=== PATIENT | female | born 2000 | race Caucasian/White ===

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

== ENCOUNTER → 2023-07-18 11:25 | Outpatient (CLI) | payer OTHER, SELFPAY ==
--- NOTE | 2023-07-18 11:29 | CA_ITS ---
APPROVED REPORT EXAM: Comprehensive 2D, Doppler, and color-flow Echocardiogram Supply Aide: Sirena Coyle, LORENZO, RVS Ht: 5 ft 6 in Wt: 208lbs BSA: 2.03 BP: 122/64 mmHg Indications: palpitations, murmur, edema 2D Dimensions Aortic Root 2.53 cm LA Volume 40.20 mL Left Atrium 3.07 cm LA Volume Index [id number] mL/m2 (M/F) 16-34 LVOT 1.87 cm (M/F) 1.5-2.5 M-Mode Dimensions RVDd 1.37 cm (0.9-2.6) LA Diam 3.82 cm (1.9-4.0) LVDd 4.75 cm (3.5-5.7) Ao Diam 2.62 cm (2.0-3.7) LVDs 3.44 cm (3.5-5.7) IVSd 0.91 cm (0.6-1.1) PWd 0.77 cm (0.6-1.1) EF (Teich) 53.50% EPSs 0.17 cm FS 27.60% EDV (Teich) 104.90 mL TAPSE 2.52 (<1.7) ESV (Teich) 48.80 mL LV Diastology E Decel Time 170.00 (160-240 msec) E/A Ratio 3.35 MED E' 14.00 (< 7 cm/sec) MED A' 8.90 cm/s E'/MED E' Ratio 8.57 (>14) LAT E' 17.00 (<10 cm/sec) LAT A' 7.80 cm/s E/LAT E' Ratio 7.06 (>14) Aortic Valve LVOT Max 97.00 (70-110 cm/s) LVOT VTI 21.65 cm AoV Peak Bret. 113.00 (50-130 cm/s) AO Peak GR. 5.10 mmHg AO Mean GR. 2.60 (<5 mmHg) AO VTI 23.96 (18-25 cm) DANN (VTI) 2.48 (2.5-4.5 cm2) Mitral Valve MV A Velocity 36.00 (40-130 cm/s) E/A Ratio 3.35 MV Decel. Time 170.00 (160-240 ms) Pulmonary Valve PV Peak Velocity 61.00 (50-150 cm/s) Tricuspid Valve TR P. Velocity 235.00 cm/s RAP Estimate 10.00 mmHg RVSP 32.00 mmHg Left Ventricle The left ventricle is normal size. The left ventricular systolic function is normal. The left ventricular ejection fraction is within the normal range. There is normal left ventricular wall thickness. There is normal LV segmental wall motion. The left ventricular diastolic function is normal. LVEF is 60%. Right Ventricle The right ventricle is normal size. The right ventricular systolic function is normal. Atria The left atrium size is normal. The right atrium size is normal. There is no Doppler evidence of interatrial shunt. Aortic Valve The aortic valve is normal in structure. The aortic valve is trileaflet. There is no aortic valvular stenosis. No aortic regurgitation is present. Mitral Valve The mitral valve is normal in structure. No evidence of mitral valve stenosis. There is no mitral valve regurgitation noted. Tricuspid Valve The tricuspid valve leaflets are thin and pliable. Mild tricuspid regurgitation. RVSP is 20-25 mmHg. Pulmonic Valve The pulmonary valve is normal in structure. Mild pulmonic regurgitation. Great Vessels The aortic root is normal in size. The ascending aorta is normal in size. IVC is normal in size and collapses >50% with inspiration. Pericardium There is no pericardial effusion. Other Information Study Quality: Adequate Conclusion Normal biventricular systolic function. No significant valvular stenosis or regurgitation. Electronically signed by : Nayely De Oliveira MD 07/18/2023 21:46:49
== END ==
PROVIDERS: PCP Nurse Practitioner Family; Visit Provider Nurse Practitioner Family
DX: R42 Dizziness and giddiness (principal); R00.2 Palpitations; R60.9 Edema, unspecified
CPT/HCPCS: 93270; 93306

== ENCOUNTER 2024-01-01 09:21 | Outpatient (CLI) | payer OTHER, SELFPAY ==
[2024-01-01 10:03] LABS: Albumin Level 4.1 g/dl (3.5-5.0); Alkaline Phosphatase 41 U/L (38-126); Anion Gap 7.3 mEq/L (5-15); Bilirubin,Direct 0.1 mg/dl (0.0-0.4); Bilirubin,Indirect 0.2 mg/dL (0.0-0.9); Bilirubin,Total 0.3 mg/dl (0.2-1.3); Bilirubin,Unconjugated 0.2 mg/dL (0.0-1.1); Blood Urea Nitrogen 13 mg/dl (7-17); Carbon Dioxide 29 mmol/L (22.0-30.0); Chloride 107 mmol/L (98-107); Estimated Glomerular Filt Rate 78 ml/min (>60); GFR (African American) 94 ML/MIN (>60); Potassium 4.3 mmoL/L (3.5-5.1); Sodium 139 mmol/L (136-145); Total Protein,Serum 6.6 g/dl (6.3-8.2)
[2024-01-01 10:08] LABS: Glucose 96 mg/dl (74-100)
[2024-01-01 10:09] LABS: Calcium 9.4 mg/dl (8.4-10.2)
[2024-01-01 10:12] LABS: Basophils # 0.1 K/mm3 (0-0.2); Basophils % 0.9 % (0.1-2.0); Eosinophils # 0.6 K/mm3 (0.0-0.4); Eosinophils % 7.3 % (0.1-12.0); Hematocrit 41.6 % (37.0-47.0); Hemoglobin 14.4 g/dL (12.2-16.2); Lymphocytes % 25.4 % (10-50); Mean Corpuscular HGB Conc 34.5 g/dL (31.8-35.4); Mean Corpuscular Hemoglobin 31.2 pg (27.0-31.2); Mean Corpuscular Volume 90.4 fl (81-99); Mean Platelet Volume 8.1 fl (7.4-10.4); Monocytes # 0.5 K/mm3 (0.1-1.0); Monocytes % 5.8 % (1.7-9.3); Neutrophils # 4.7 K/mm3 (1.8-7.8); Neutrophils % 60.6 % (37.0-80.0); Platelet Count 413 K/mm3 (142-424); Red Cell Distribution Width 13.6 % (11.5-17.5); White Blood Count 7.8 K/mm3 (4.8-10.8)
[2024-01-01 10:20] LABS: Free T4 (Free Thyroxine) 0.94 ng/dl (0.78-2.19)
[2024-01-01 10:34] LABS: Thyroid Stimulating Hormone 2.25 uIU/mL (0.465-4.68)
[2024-01-01 11:09] LABS: Alanine Aminotransferase 23 U/L (12-78); Aspartate Amino Transferase 28 U/L (14-36)
== END 2024-01-01 23:59 ==
LOC: LAB 09:24
PROVIDERS: PCP Nurse Practitioner Family; Visit Provider Nurse Practitioner Family
DX: R00.2 Palpitations (principal); R53.83 Other fatigue; R06.00 Dyspnea, unspecified
CPT/HCPCS: 36415; 80048; 80076; 84439; 84443; 85025

== ENCOUNTER 2025-04-22 14:49 | Outpatient (CLI) | payer BC, SELFPAY ==
--- OUTSIDE RECORDS SUMMARY | 2025-04-22 14:51 | XMS_ITS | Clinical Summary ---
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 4 Active triamcinolone (KENALOG) 0.1 % Top CreamIndication s:Rash Apply topically 2 times daily. 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 [address] Karen Goel MD Rash (Primary Dx) Discharge Disposition: Home or Self Care 02/15/2025 Travel 01/26/2025 6:45 PM EDT Office Visit [facility] [address] [place] [address] Ekaterina Chester APRN Rash (Primary Dx) from Last 3 Months Surgical History Surgery Date Site/Laterality Comments TONSILLECTOMY Medical History Medical History Date Comments Tachycardia Social History Tobacco Use Types Packs/Day Years Used Date Smoking Tobacco: Never Smokeless Tobacco: Never Tobacco Cessation:Counseling Given: No Alcohol Use Standard Drinks/Week Comments Yes 0 (1 standard drink = 0.6 oz pur e alcohol) sometimes Comments No Sex and Gender Information Value Date Recorded Sex Assigned at Not on file Legal Sex Female 6:22 PM EDT Gender Identity Not on file Sexual Orientation Not on file Obstetrics History Last Filed Vital Signs Vital Sign Reading Time Taken Comments Blood Pressure 107/60 02/15/2025 9:13 PM EDT Pulse 87 02/15/2025 7:32 PM EDT Temperature 36.6 C (97.8 F) 02/15/2025 7:37 PM EDT Respiratory Rate 20 02/15/2025 7:32 PM EDT Oxygen Saturation 99% 02/15/2025 9:13 PM EDT Inhaled Oxygen Concentration - - Weight 100.7 kg (222 lb) 02/15/2025 7:32 PM EDT Height 175.3 cm (5' 9 ) 01/26/2025 6:41 PM EDT Body Mass Index 32.78 01/26/2025 6:41 PM EDT Plan of Treatment Upcoming Encounters Date Type Department Care Team (Late st Contact Info) Description 08/12/2025 9:00 AM EDT Office Visit [facility] [place] [facility] [address] [facility] [address] [place] [phone] Vlad Dunn MD [address] [place] [address] Health Maintenance Due Date Last Done Comments Annual Wellness Exam 2003 HPV (1 - 3-dose series) 2015 DTaP/TDaP/Td (1 - Tdap) 2019 Hepatitis B Vaccine (1 of 3 - 19+ 3-dose series) 2019 Cervical Cancer Screening 2021 Pap Smear 2021 COVID-19 Vaccine ( - 2023-2 5 season) 2024 Influenza Vaccine (#1) 2025 Meningococcal B Vaccine Aged Out No l onger eligible based on patient's age to complete this topic Pneumococcal Vaccine 0-49 Aged Out No longer eligible based on patient's age to complete this topic Care Teams 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
[2025-04-22 16:32] LABS: Hematocrit 41.8 % (37.0-47.0); Hemoglobin 14.3 g/dL (12.2-16.2); Immature Granulocytes % 0.4 %; Mean Corpuscular HGB Conc 34.2 g/dL (31.8-35.4); Mean Corpuscular Hemoglobin 29.2 pg (27.0-31.2); Mean Corpuscular Volume 85.5 fl (81-99); Nucleated Red Blood Cells % 0 %; Platelet Count 487 K/mm3 (142-424); Red Blood Count 4.89 M/mm3 (4.20-5.40); Red Cell Distribution Width-SD 40.4 fL; White Blood Count 9.6 K/mm3 (4.8-10.8)
[2025-04-22 17:08] LABS: Alanine Aminotransferase 26 U/L (12-78); Albumin Level 4.7 g/dl (3.5-5.0); Alkaline Phosphatase 50 U/L (38-126); Aspartate Amino Transferase 33 U/L (14-36); Bilirubin,Direct 0.3 mg/dl (0.0-0.4); Bilirubin,Indirect 0.3 mg/dL (0.0-0.9); Bilirubin,Total 0.6 mg/dl (0.2-1.3); Bilirubin,Unconjugated 0.3 mg/dL (0.0-1.1); Blood Urea Nitrogen 10 mg/dl (7-17); Calcium 9.8 mg/dl (8.4-10.2); Carbon Dioxide 25 mmol/L (22.0-30.0); Chloride 100 mmol/L (98-107); Cholesterol 209 mg/dl (140-200); Creatinine,Serum 0.80 mg/dl (0.52-1.04); Estimated Glomerular Filt Rate 88 ml/min (>60); GFR (African American) 107 ML/MIN (>60); Glucose 91 mg/dl (74-100); HDL Cholesterol 37 mg/dl (40-60); Magnesium 2.1 mg/dl (1.6-2.3); Potassium 4.6 mmoL/L (3.5-5.1); Total Protein,Serum 7.4 g/dl (6.3-8.2); Triglycerides 269 mg/dl (30-150)
[2025-04-22 17:12] LABS: Anion Gap 18.6 mEq/L (5-15); Sodium 139 mmol/L (136-145)
[2025-04-22 17:24] LABS: Free T4 (Free Thyroxine) 1.08 ng/dl (0.78-2.19)
[2025-04-22 17:39] LABS: Thyroid Stimulating Hormone 1.85 uIU/mL (0.465-4.68)
== END 2025-04-22 23:59 | disposition home or self-care (01) ==
LOC: LAB 14:50
PROVIDERS: PCP Nurse Practitioner Family; Visit Provider Nurse Practitioner Family
DX: R42 Dizziness and giddiness (principal); R53.83 Other fatigue; R00.2 Palpitations
CPT/HCPCS: 36415; 80048; 80061; 80076; 83735; 84439; 84443; 85025

== ENCOUNTER 2025-10-06 09:39 | Outpatient (CLI) | payer BC, SELFPAY ==
--- OUTSIDE RECORDS SUMMARY | 2025-10-06 09:44 | XMS_ITS | Clinical Summary ---
Author Organization [facility] Address [address] [place] [phone] Phone Care Team Providers Care Rod Piler Name Role Phone No Pcp, Per Patient [...] sac 10/13/2024 31 weeks gestation of 10/13/2024 Surgical History Surgery Date Site/Laterality Comments TONSILLECTOMY [...] on file Sexual Orientation Not on file Last Filed Vital Signs Vital Sign Reading [...] 01/26/2025 6:41 PM EDT Plan of Treatment Health Maintenance Due Date Last Done Comments Annual Wellness Exam 2003 HPV (1 - 3-dose series) 2015 DTaP/TDaP/Td (1 - Tdap) 2019 Hepatitis B Vaccine (1 of 3 - 19+ 3-dose series) 2019 Cervical Cancer Screening 2021 Pap Smear 2021 COVID-19 Vaccine ( - 2024-2 6 season) 2025 Influenza Vaccine (#1) 2025 Meningococcal B Vaccine Aged Out No l onger eligible based on patient's age to complete this topic Pneumococcal Vaccine 0-49 Aged Out No longer eligible based on patient's age to complete this topic Insurance [facility] [place] PLAN BY [facility] [place] PLAN BY [facility] Care Teams Rod Piler Relationship Specialty Start Date End Date No Pcp, Per Patient PCP - General 11/24/23
== END 2025-10-06 23:59 | disposition home or self-care (01) ==
LOC: RT 09:41
PROVIDERS: PCP Nurse Practitioner Family; Visit Provider Nurse Practitioner Family
DX: H55.00 Unspecified nystagmus (principal)
CPT/HCPCS: 95816